=== PATIENT | male | born 2000 | race Caucasian/White ===

== ENCOUNTER 2024-04-20 21:28 | Inpatient (IN) | payer BC, SELFPAY ==
[2024-04-20] VITALS (11 sets, daily range): BP systolic 115–136; BP diastolic 65–88; BMI 30.1; BMI 29.9
--- NOTE | 2024-04-20 16:17 | ED.GENMED ---
History of Present Illness
General
Chief Complaint: Facial Problem
Source: patient
Exam Limitations: none
Time Seen by Provider: 04/20/24 15:47
Nursing documentation reviewed up to this point in time: agreed with
History of Present Illness
History of Present Illness:
pt is a 23 y/o M immunoocompromised, ankylosing spondylitis on injectable
h/o sinusitis
began with L sided maxillary facial swelling 2 days ago which was spontaneous and mild initally but then increased in size
ingrid tto urgent care that night and was told he probably had nonbaceterial sinusitis and to try antihistimine
the next day swelling was slightly worse and he had a red rash/tati on the right side of his nose which is not painful
he has been able to eat, open mouth, but has tendnress to his face. yesterday he called his vice president of manufacturing who called in augmentin
took 1 last night and 1 this morning and swelling is worse
chills but no fever
has never had impetigo or abscess/mrsa that he knows of
Past History
Past History
ED Past Medical History: Other (anklylosing spondylitis)
Social History
Tobacco: Non-smoker
Review of Systems
Review of Systems
Allergies reviewed?: Yes
All Other Systems: Not applicable
Phy Exam
Physical Exam
Physical Exam:
GENERAL: Alert , in no apparent distress
EYE: pupils equal and reactive
face: moderate L maxillary swelling without any obvious erythema
nose is not very swollen
on the opposite side of the nose (right side) he has a flat red abrasion looking lesion with slight honey crust that appears c/w impetigo
nontender
EOMS normal
no eye pain with movement
ears normal
NECK: Supple
ENT: o/p clr, mmm.
no dental tendrnesss or obvious caries, no periapical swelling
no trismus
CARDIAC: tachycardic
LUNGS: Clear breath sounds bilaterally, no acute respiratory distress, no wheezes/rales/rhonchi
NEUROLOGICAL: Alert and oriented, no focal neuro deficits
SKIN: Warm and dry, skin intact.
PSYCH: Normal and appropriate interaction.
Course
Orders/Labs/Results
Orders:
Orders
04/20/24 16:08
CT Facial Bones W/ Iv Contrast Urgent
Comment:
Reason For Exam: left facial swelling x 3 days, immunecompr
0.9% Sodium Chloride 1000 ml [Nss] 1,000 ml IV BOLUS
04/20/24 16:36
Complete Blood Count/With Diff Urgent
Comprehensive Metabolic Panel Urgent
Blood Culture Urgent
STEVAN Source: Blood/Venous
Specimen Description:
04/20/24 16:39
Wound Culture [Wound/Abscess/Other Culture] Urgent
STEVAN Source: Skin Surface
Specimen Description:
Date Specimen was Collected: 04/20/24
Time Specimen was Collected: 16:38
04/20/24 16:59
Clindamycin 900 mg/50 ml [Cleocin] 900 mg in 50 ml IV NOW
04/20/24 18:07
Ketorolac [Toradol] 30 mg IV NOW STA
04/20/24 18:08
Ketorolac [Toradol] See Dose Instructions .ROUTE .STK-MED ONE
04/20/24 18:12
Acetaminophen [Tylenol] 1,000 mg PO NOW STA
04/20/24 20:05
Clomipramine HCl [Anafranil] 75 mg PO NOW STA
04/20/24 20:24
Duloxetine Delayed Release [Cymbalta Delayed Release] 30 mg PO NOW STA
04/20/24 21:15
Admit/Transfer Patient As Directed
Co-Sign Provider:
Level of Care: Inpatient admission
Assign to:: Medical/Surgical
Physician / Group: htay
Diagnosis: Dental abscess complicated with facial celluitis, sinusitis
Reason for Hospitalization: Dental abscess complicated with facial celluitis, sinusitis
Expected length of stay greater than two midnights?: Yes
ELOS- Estimated Length of Stay in days: 2
I certify the patient meets the requirements for IP care: Yes
04/20/24 21:16
PRN Pain Medication Management As Directed
May give lesser potent ordered pain med per pt: Yes
preference::
Protocol:: Medication orders for pain may be administered in a
manner that supports deferring to patient preference
when the pt is:
- Requesting an ordered lesser potent pain medication.
Least to most potent pain medications are defined
as: acetaminophen < NSAID < tramadol < opioids
(morphine, oxycodone, hydromorphone).
- Requesting a lesser dose of the same medication IF
ORDERED.
- Requesting a less intrusive route of administration
if both routes are prescribed by the provider (PO <
IV).
04/20/24 21:17
Code Status As Directed
Resuscitation Status: Full Code
04/20/24 22:05
0.9% Sodium Chloride 1000 ml [Nss] 1,000 ml IV 100 mls/hr
Bisacodyl [Dulcolax] 10 mg RECTAL [id number] PRN
Docusate W/Senna [Senokot-S] 1 tablet PO BIDPRN PRN
Ondansetron Injectable [Zofran] 4 mg IV Q6HPRN PRN
Polyethylene Glycol Powder [Miralax] 17 grams PO DAILYPRN PRN
fluticasone propionate 1 spray NASAL DAILYPRN PRN
04/20/24 22:05
Activity As Directed
Activity Level: With Assistance
Intake/ Output As Directed
Frequency: Per unit guidelines
Pneumatic Compression Sleeves As Directed
Type: Knee high
Vital Signs As Directed
Frequency: Per unit guidelines
DX Deep Vein Thrombosis Video Routine
04/20/24 22:15
Acetaminophen [Tylenol] 650 mg PO Q4HPRN PRN
04/21/24 00:00
Clindamycin 600 mg/50 ml [Cleocin] 600 mg in 50 ml IV Q6H
04/21/24 00:10
Ketorolac [Toradol] 10 mg IV Q6HPRN PRN
04/21/24 Breakfast
Clear Liquid
At Your Request: Full Participation
Does patient need a safe tray?: No
Basic Metabolic Panel IN AM
Complete Blood Count/No Diff IN AM
04/21/24 22:00
Clomipramine HCl [Anafranil] 75 mg PO HS
Duloxetine Delayed Release [Cymbalta Delayed Release] 30 mg PO HS
Abnormal Lab Results
04/20/24
16:36
Absolute Neuts (auto) 7.2 H 10^3/uL
(1.4-6.5)
Absolute Lymphs (auto) 1.1 L 10^3/uL
(1.2-3.4)
Absolute Monos (auto) 0.9 H 10^3/uL
(0.1-0.6)
Neutrophils % 77.4 H %
(42.2-75.2)
Lymphocytes % 11.6 L %
(20.5-51.1)
Monocytes % 9.9 H %
(1.7-9.3)
Glucose 101 H mg/dl
(70-99)
Calcium 10.4 H mg/dl
(8.4-10.2)
Total Protein 8.5 H g/dl
(6.3-8.2)
Albumin 5.2 H g/dl
(3.5-5.0)
04/20/24 16:36
04/20/24 16:36
Vital Signs
Initial and Last Documented VS:
Initial Vital Signs
Temp Pulse Resp BP Pulse Ox
99.1 F 135 16 136/71 98
04/20/24 15:28 04/20/24 15:28 04/20/24 15:28 04/20/24 15:28 04/20/24 15:28
Last Documented Vital Signs
Temp Pulse Resp BP Pulse Ox
98.5 F 118 20 130/75 98
04/20/24 22:43 04/20/24 22:43 04/20/24 22:43 04/20/24 22:43 04/20/24 22:43
MDM/Problems Addressed
Differential Diagnosis Includes:
facial cellulitis, dental abscess, sinusitis, MRSA, impetigo, bacteremia
MDM/Problems Addressed:
23 y/o M with L sided facial swelling and pain the past 3 days worsened despite 2 doses of augmentin
no dental pain
also with a skin lesion on his right nostril, new
the skin rash appears like impetigo
pt has no h/o MRSA
it was cultured
he is immunocompromised due to med for ankylosing spondilitis
will CT face, give IV abx and anticicpate admission for iv abx.
dr. hilario from [facility] agreed to have pt transferred, will speak with hospitalist
1900 pt accepted by hospitalist at [facility]
04/20/2024 2130 PM
no beds at [facility]
pt will be admitted here until bed opens up
*Critical Care Note
Total Time (30-74mins, 75-104mins- exclusive of procedures): Not Applicable
ED Attending Note
-
Portions of this chart may have been created with voice recognition software.� Occasional wrong word or��sound alike� substitutions may have occurred due to the inherent limitations of voice recognition software.
Discharge Plan
Departure
Patient Disposition: Acute Care Hospital
Date of Disposition: 04/20/24
Time of Disposition: 19:08
Patient with high blood pressure during this ER visit?: No
Condition: Fair
Covid-19: Not Applicable
Discharge Problem:
Abscess, dental, Cellulitis of face
Hospital Transfer
Other hospital: [facility]
I certify that the patient requires transfer: Yes
Discussed case with accepting physician: hung
Reason for transfer: higher level of care, availability of service and specialties available
Interventions
Interventions:
*Risk Screen - Suicide Last Done: 04/20/24 17:30
*General Assessment Last Done: 04/20/24 17:40
*Neglect/Abuse Screening Last Done: 04/20/24 17:30
*Nursing Disposition Last Done: 04/20/24 22:05
ED- Neurological Assessment Last Done: 04/20/24 17:30
ED-Skin Assessment Last Done: 04/20/24 17:30
Discharge Date and Time
Discharge Date/Time: 04/20/24 22:05
[2024-04-20] MEDS: NSS 1000 IV ×2 (16:38→23:21)
[2024-04-20 17:10] LABS: % Basophils 0.3 % (0-2); % Eosinophils 0.5 % (0-6); % Immature Granulocytes 0.3 % (0-0.5); % Lymphocytes 11.6 % (20.5-51.1); % Monocytes 9.9 % (1.7-9.3); % Neutrophils 77.4 % (42.2-75.2); Absolute Eosinophils 0.1 10^3/uL (0-0.7); Absolute Lymphocytes 1.1 10^3/uL (1.2-3.4); Absolute Monocytes 0.9 10^3/uL (0.1-0.6); Absolute Neutrophils 7.2 10^3/uL (1.4-6.5); Hematocrit 39.2 % (39.0-52.0); Mean Corp Hgb Conc. 35.7 g/dL (33.0-37.0); Mean Corpuscular Hgb 29.1 pg (27.0-31.0); Mean Corpuscular Volume 81.5 fL (80.0-94.0); Mean Platelet Volume 9.2 fL (7.4-10.4); Nucleated Red Blood Cells % 0 % (-); Platelet Count 242 10^3/uL (130-400); Red Blood Cell Count 4.81 10^6/uL (4.70-6.10); Red Cell Dist. Width 11.7 % (11.5-14.5); White Blood Cell Count 9.3 10^3/uL (4.8-10.8)
[2024-04-20 17:18] LABS: ALT (SGPT) 19 U/L (0-50); AST (SGOT) 24 U/L (17-59); Albumin 5.2 g/dl (3.5-5.0); Alkaline Phosphatase 74 U/L (38-126); Blood Urea Nitrogen 12 mg/dl (9-20); Calcium 10.4 mg/dl (8.4-10.2); Carbon Dioxide 27 mmol/L (22-30); Chloride 101 mmol/L (98-107); Estimated Creatinine Clearance > 125 ml/min; Glucose 101 mg/dl (70-99); Potassium 4.2 mmol/L (3.5-5.1); Sodium 143 mmol/L (135-145); Total Bilirubin 1.1 mg/dl (0.2-1.3); Total Protein 8.5 g/dl (6.3-8.2); eGFR > 60.00
[2024-04-20] MEDS: CLEOCIN 50 IV ×2 (17:37→23:22)
[2024-04-20] MEDS: TORADOL 30 MG IV (18:10)
[2024-04-20] MEDS: TYLENOL 1000 MG PO (18:15)
[2024-04-20] MEDS: ANAFRANIL 75 MG PO (20:40)
[2024-04-20] MEDS: CYMBALTA DELAYED RELEASE 30 MG PO (20:42)
--- NOTE | 2024-04-20 21:09 | HPS.HSE ---
Family Physician
-
Family Physician: Dank Larry DO
Chief Complaint
-
left facial swelling, edema
History of Present Illness
pt is a 23 y/o M immunocompromised, ankylosing spondylitis on injectable,h/o sinusitis began with L sided maxillary facial swelling on , which was spontaneous and mild initially but then increased in size went to urgent care that night and
was told he probably had nonbacterial sinusitis. the next day swelling was slightly worse and he had a red rash/tati on the right side of his nose which is not painful. he has been able to eat, open mouth. yesterday he called his broadcaster who
called in Augmentin took 1 last night and 1 this morning and swelling is worse.stated chills. denied fever. denied WARE, dizzy or syncopal episode. denied chest pain, sob. denied abdominal pain, n,v,d. denied dysuria or hematuria.
Patient received IV clindamycin, Toradol and normal saline in ER. Admitted for further management
Medical History
Past Medical History
Past Medical History: Reports Other
Additional Past Medical History:
Anxiety
Past Surgical History: Reports None
Social History
Tobacco: Non-smoker
Alcohol: Occasional
Drug: None
Personal: Single
Living: With Family
Employment: Employed
Family History
Family History: Not pertinent
Allergies / Home Medications
Allergies reflects when Allergies were last updated in [employer]
Home Medications with original date entered in [employer]
Allergy/Medication List:
Allergies
Allergy/AdvReac Type Severity Reaction Status Date / Time
fluoxetine [From Prozac] Allergy Hives Verified 04/20/24 15:32
Home Medications
amoxicillin 875 mg-potassium clavulanate 125 mg tablet 1 tab PO BID 04/20/24
clomipramine 75 mg capsule 75 mg PO HS 04/20/24
duloxetine 30 mg capsule,delayed release 30 mg PO HS 04/20/24
fluticasone propionate 50 mcg/actuation nasal spray,suspension 1 spray intranasal DAILYPRN PRN conjestion 04/20/24
ibuprofen 200 mg tablet 600 mg PO Q6HPRN PRN mild pain 04/20/24
ixekizumab 80 mg/mL subcutaneous auto-injector (Taltz Autoinjector) 80 mg SC QMONTH 04/20/24
loratadine 10 mg tablet (Claritin) 10 mg PO DAILYPRN PRN allergies 04/20/24
Review of Systems
-
Constitutional: Reports No Symptoms
EENT: Reports No Symptoms
Respiratory: Reports No Symptoms
Cardiac: Reports No Symptoms
Abdomen/GI: Reports No Symptoms
: Reports No Symptoms
Musculoskeletal: Reports No Symptoms
Skin: Reports Other (Left facial redness, swelling)
Neurological: Reports No Symptoms
Endocrine: Reports No Symptoms
Hematologic/Lymphatic: Reports No Symptoms
Psych: Reports No Symptoms
Physical Exam
Vital Signs
Vital Signs
Temp Pulse Resp BP Pulse Ox
99.1 F 104 17 115/65 97
04/20/24 20:28 04/20/24 21:01 04/20/24 21:01 04/20/24 21:01 04/20/24 21:01
Physical Exam
General: Well Developed, Well Nourished and No Apparent Distress
HEENT: NormoCephalic, Moist mucous membranes and Atraumatic
Respiratory: Clear
Cardiac: S1/S2 and Regular Rhythm; No Murmur or Rub
GI: Soft, Non Tender, Non Distended and Normal Bowel Sounds; No Organomegaly
Rectal: Deferred by Provider
Musculoskeletal: No Clubbing, No Cyanosis and No Edema
Skin: Rash and Other (Left maxillary swelling and right abrasion)
Neuro: AO x 3 and Nonfocal/grossly intact
Psych: Calm
Laboratory Results
-
04/20/24 16:36
04/20/24 16:36
Laboratory Results
Total Bilirubin 1.1 mg/dl (0.2-1.3) 04/20/24 16:36
AST 24 U/L (17-59) 04/20/24 16:36
ALT 19 U/L (0-50) 04/20/24 16:36
Alkaline Phosphatase 74 U/L (38-126) 04/20/24 16:36
Data Reviewed
-
CT Scan: Report Reviewed by me
Lab Data: Labs Reviewed by me
Impression/Plan
-
# Left facial swelling, pain likely due to dental abscess/patient cellulitis
-Failed outpatient oral antibiotic
-IV clindamycin continued
-Patient accepted by oral surgeon at [facility] but no beds tonight
-Tylenol as needed for fever, pain
-Protocol as needed for pain
-CT facial bones with impression of 6.5 mm reticular cyst at the root of the first left maxillary molar with 2.5 cm overlying subperiosteal abscess, superficial edema and thickening of the overlying superficial investing fascia.
There is moderate left maxillary sinusitis
-Wound and blood culture sent from ER
# History of OCD
-Clomipramine continued
Anxiety#
-Duloxetine continued
# History of ankylosing spondylitis
-On Taltz
# DVT prophylaxis
-SCD
# CODE STATUS
-Full code
--- NOTE | 2024-04-20 21:22 | W.PN.UPDATE ---
Update Note
Progress Note Update
This note serves as an addendum to the H&P by delivery table feeder AMISH Nancy JIMENEZ
HPI:
23M HX Anxiety, OCD, HX ankylosing spondylitis on ixekizumab pw 3 days of painful L facial swelling
S/p 2 doses of Augmentin outpatient but worsening swelling today associated with fever.
Vital Signs
Temp Pulse Resp BP Pulse Ox
99.1 F 104 17 115/65 97
04/20/24 20:28 04/20/24 21:01 04/20/24 21:01 04/20/24 21:01 04/20/24 21:01
labs
04/20/24
16:36
WBC 9.3
eGFR > 60.00
04/20/24 CT Facial Bones W/ Iv Contrast
6.5 mm reticular cyst at the root of the first left maxillary molar with 2.5 cm overlying subperiosteal abscess, superficial edema and thickening of the overlying superficial investing fascia.
There is moderate left maxillary sinusitis
AP:
Dental abscess complicated with painful Lt facial cellulitis and sinusitis
Sinus tachycardia but T < 100.9
At risk for sepsis
Immuno-modified patient on Ixekizu
- IVF and clear - can ADAT
- Empiric IV Clindamycin
- PRN Toradol analgesia
- per ER AP : she d/w OMFS at [facility] who agreed to transfer; accepted by hospitalist but there are no beds tonight
HX Anxiety, OCD
HX ankylosing spondylitis on ixekizuma
DVT Px; SCD
Full code
IP MS
[2024-04-20] MEDS: TYLENOL 650 MG PO (23:19)
[2024-04-21] MEDS: TORADOL 10 MG IV ×2 (00:16→08:54)
--- NOTE | 2024-04-21 03:34 | TRANSFER ---
Pt admitted from ED. Pt ambulated self to bed. Pt reported 4/10 pain of the left face. Pain meets pt's acceptable level. AAXO3. Educated on plan of care. Pt oriented to room with call peterson in reach. Plan of care ongoing.
[2024-04-21] MEDS: CLEOCIN 50 IV (06:26)
[2024-04-21 07:23] VITALS: BP 141/81
[2024-04-21 07:38] LABS: Blood Urea Nitrogen 9 mg/dl (9-20); Calcium 9.6 mg/dl (8.4-10.2); Carbon Dioxide 28 mmol/L (22-30); Chloride 103 mmol/L (98-107); Estimated Creatinine Clearance > 125 ml/min; Glucose 111 mg/dl (70-99); Potassium 4.6 mmol/L (3.5-5.1); Sodium 143 mmol/L (135-145); eGFR > 60.00
[2024-04-21 07:51] LABS: Hematocrit 35.4 % (39.0-52.0); Hemoglobin 12.7 g/dL (13.0-18.0); Mean Corp Hgb Conc. 35.9 g/dL (33.0-37.0); Mean Corpuscular Hgb 29.5 pg (27.0-31.0); Mean Corpuscular Volume 82.3 fL (80.0-94.0); Mean Platelet Volume 9.5 fL (7.4-10.4); Platelet Count 220 10^3/uL (130-400); Red Cell Dist. Width 11.8 % (11.5-14.5); White Blood Cell Count 9.6 10^3/uL (4.8-10.8)
--- NOTE | 2024-04-21 08:29 | W.PN.HOSP.TC ---
Today's Communication/Plan
-
Discharge today to [facility]
Assessment / Plan
Assessment / Plan
Physical Exam
General: Not in acute distress
HEENT: Normocephalic, Moist mucous membranes and Atraumatic
Respiratory: Clear
Cardiac: S1/S2 and Regular Rhythm; Tachycardic.
GI: Soft, Non Tender, Non Distended and Normal Bowel Sounds
Musculoskeletal: No Cyanosis and No Edema
Skin: Rash and Other (Left maxillary swelling and right facial abrasion)
Neuro: AO x 3 and Nonfocal/grossly intact
Psych: Calm
Assessment/Plan
23 y/o M immunocompromised, ankylosing spondylitis on ,h/o sinusitis began with L sided maxillary facial swelling on , which was spontaneous and mild initially but then increased in size went to urgent care that night and was told
he probably had nonbacterial sinusitis. the next day swelling was slightly worse and he had a red rash/tati on the right side of his nose which is not painful. he has been able to eat, open mouth. yesterday he called his hot mix operator who called in
Augmentin took 1 last night and 1 this morning and swelling is worse.stated chills. denied fever. denied WARE, dizzy or syncopal episode. denied chest pain, sob. denied abdominal pain, n,v,d. denied dysuria or hematuria.
Patient received IV clindamycin, Toradol and normal saline in ER. Admitted for further management
# Left facial swelling, pain likely due to dental abscess/patient cellulitis
-Failed outpatient oral antibiotic Augmentin
-Tylenol as needed for fever, pain
-Protocol as needed for pain
-CT facial bones with (as per radiologist's report) with impression of '6.5 mm reticular cyst at the root of the first left maxillary molar with 2.5 cm overlying subperiosteal abscess, superficial edema and thickening of the overlying superficial
investing fascia. There is moderate left maxillary sinusitis.'
-Wound and blood culture sent from ER around the time of admission
-IV clindamycin was initially started, I discussed the case with infectious disease (not an official consult) and the decision was made to switch patient to Unasyn this morning
-Patient accepted by oral surgeon at [facility] -- bed is available today and patient is expected to be transported at 11 AM today
# History of OCD
-Clomipramine continued
Anxiety#
-Duloxetine continued
# History of ankylosing spondylitis
-On Taltz
# DVT prophylaxis
-SCDs -- consider starting Lovenox or subq Heparin once at [facility], if needed
# CODE STATUS
-Full code
More than 30 minutes spent in discharge including
Final examination of the patient
Summarizing hospital stay
Instructions for continuing care to all relevant caregivers
Preparation of discharge records, prescriptions, and referral forms
Total time spent (in minutes): 38
Anticipated Discharge: Today
Subjective/Interval History
-
Date of Service: April 21, 2024
Patient was seen and examined. He reported he was feeling about the same with the same left sided facial swelling. No other complaints.
Objective Data
-
Labs:
Laboratory Results
04/21/24
06:42
WBC 9.6
Hgb 12.7 L
Hct 35.4 L
Plt Count 220
Sodium 143
Potassium 4.6
Chloride 103
Carbon Dioxide 28
BUN 9
Creatinine 0.8
Glucose 111 H
Calcium 9.6
Vital Signs:
Vital Signs
Temp Pulse Resp BP Pulse Ox
98.3 F 111 20 141/81 94
04/21/24 07:23 04/21/24 07:23 04/21/24 07:23 04/21/24 07:23 04/21/24 07:23
I&O
04/20/24 04/21/24 04/22/24
06:59 06:59 06:59
Intake Total 530 / 530
Balance 530 / 530
--- NOTE | 2024-04-21 10:27 | CM ---
CM following re: discharge planning.
Reviewed pt's chart, met with pt. pt's father, grandmother and aunt at bedside.
Pt is a 23 year old male, admitted with primary dx of Left facial swelling, pain likely due to dental abscess/patient cellulitis.
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
D/C plan: transfer to [facility].
CM will follow to assist pt with transfer as needed.
[2024-04-21] MEDS: UNASYN IV (10:38)
--- NOTE | 2024-04-24 09:32 | W.DCSUMMARY ---
Discharge Summary
Discharge Data
Date of Admission: 04/20/24
Date of Discharge: 04/21/24
Total time spent discharging patient (in min): 38
-
Pending Results: Yes
Additional Pending Results:
Final results of blood cultures from hospitalization
Hospital Course
23 y/o male with ankylosing spondylitis (takes Ixekizumab at home), history of sinusitis presented with left-sided maxillary facial swelling for 2 to 3 days; patient was started on outpatient antibiotics. Patient was started on intravenous
antibiotics. CT of the facial bones with intravenous contrast was done, and it showed, as per radiologist's report:
'IMPRESSION:
6.5 mm reticular cyst at the root of the first left maxillary molar with 2.5 cm overlying subperiosteal abscess, superficial edema and thickening of the overlying superficial investing fascia.
There is moderate left maxillary sinusitis'
Patient was accepted for transfer to [facility] by ora surgeon there. Patient was transferred to [place] on April 21, 2024.
Discharge Plan
-
Patient Disposition: Acute Care Hospital
Discharge Orders:
Discharge Patient (As Directed); Ordered 04/21/24
Ordered By: Lewis Beltran
Discharge Date and Time
Discharge Date/Time: 04/21/24 11:44
Print Language: BERMUDIAN
== END 2024-04-21 11:44 | disposition short-term general hospital (02) | DRG 158 ==
LOC: 4 WEST ACU 21:28
PROVIDERS: Physician Assistant; ADMITTING PHYSICIAN Internal Medicine; ATTENDING PHYSICIAN Hospitalist; EMERGENCY PHYSICIAN Emergency Medicine; FAMILY PHYSICIAN Family Medicine
DX: K04.7 Periapical abscess without sinus (principal); D84.9 Immunodeficiency, unspecified; L03.211 Cellulitis of face; R22.0 Localized swelling, mass and lump, head; M45.9 Ankylosing spondylitis of unspecified sites in spine; R21 Rash and other nonspecific skin eruption; F41.9 Anxiety disorder, unspecified; F42.9 Obsessive-compulsive disorder, unspecified; J32.0 Chronic maxillary sinusitis; Z88.8 Allergy status to other drugs, medicaments and biological substances
CPT/HCPCS: 70487; 80048; 80053; 85025; 85027; 87040; 87070; 87205; 96365; 96375; 99285; Q9967